=== PATIENT | female | born 1950 | race Caucasian/White ===

== ENCOUNTER 2023-06-05 21:49 | Emergency (ER) | payer MEDICARE, BC ==
[2023-06-05] MEDS ORDERED: Lidocaine 1% 20 ML MDV INFILT ONE (21:50)
[2023-06-05] MEDS ORDERED: Lidocaine 1% with EPINEPHrine 1:100,000 20 ML MDV INJECT ONE (22:13)
== END 2023-06-06 00:55 | disposition home or self-care (01) ==
LOC: FB.ED 21:49
DX: S06.0X0A Concussion without loss of consciousness, initial encounter (principal); S01.21XA Laceration without foreign body of nose, initial encounter; S01.81XA Laceration without foreign body of other part of head, initial encounter; S16.1XXA Strain of muscle, fascia and tendon at neck level, initial encounter; S80.01XA Contusion of right knee, initial encounter; M25.531 Pain in right wrist; E78.00 Pure hypercholesterolemia, unspecified; I10 Essential (primary) hypertension; E11.9 Type 2 diabetes mellitus without complications; Z88.5 Allergy status to narcotic agent; Z79.899 Other long term (current) drug therapy; Z79.4 Long term (current) use of insulin; W18.09XA Striking against other object with subsequent fall, initial encounter
CPT/HCPCS: 12011; 12013; 70450; 72125; 73110-LT; 73130-LT; 73560-RT; 99283; 99284